=== PATIENT | male | born 1975 | race Caucasian/White ===

== ENCOUNTER 2018-12-21 08:00 | Emergency (ER) | payer MEDICAID ==
[2018-12-21] MEDS ORDERED: Albuterol/Ipratropium 3.0-0.5 MG/3 ML Neb Soln NEB ONE (08:04)
[2018-12-21] MEDS ORDERED: Albuterol/Ipratropium 3.0-0.5 MG/3 ML Neb Soln ONE (08:06)
[2018-12-21] MEDS ORDERED: methylPREDNISolone Sodium Succinate 125 MG/2 ML SDV IVPUSH ONE (08:07)
--- NOTE | 2018-12-21 08:08 | EDM.PDOC ---
ED HPI GENERAL MEDICAL PROBLEM - General Stated Complaint: CANT BREATHE Time Seen by Provider: 12/21/18 08:00 Source of Information: Reports: Patient, RN History Limitations: Reports: No Limitations - History of Present Illness INITIAL COMMENTS - FREE TEXT/NARRATIVE: C/O SOB wheezing starting this am on arising. No recent problems, Has inhaler at home but uses infrequently. Traveling for job and stayed in motel last margy and noted stale musty smell to room and believes that is what triggered issue. Hx smoking induced asthma. No fever or chills dry non productive cough. - Related Data Allergies Allergy/AdvReac Type Severity Reaction Status Date / Time No Known Allergies Allergy Verified 12/21/18 08:15 Home Meds: Home Meds . [No Known Home Meds] 12/21/18 [History] ED ROS GENERAL - Review of Systems Review Of Systems: ROS reveals no pertinent complaints other than HPI. ED EXAM, GENERAL - Physical Exam Exam: See Below Exam Limited By: No Limitations General Appearance: Alert, Moderate Distress Eye Exam: Bilateral Eye: EOMI Ears: Normal External Exam, Normal TMs Nose: Normal Inspection Throat/Mouth: Normal Inspection Head: Atraumatic, Normocephalic Neck: Normal Inspection Respiratory/Chest: Respiratory Distress, Decreased Breath Sounds, Wheezing Cardiovascular: Normal Peripheral Pulses, Regular Rate, Rhythm GI/Abdominal: Normal Bowel Sounds Extremities: Normal Inspection Neurological: Alert, Oriented, Normal Cognition Psychiatric: Normal Affect, Normal Mood Skin Exam: Warm, Dry, Intact, Tattoo(s) Course - Vital Signs Last Recorded V/S: Last Vital Signs Temp 97.1 F 12/21/18 08:00 Pulse 80 12/21/18 08:20 Resp 30 H 12/21/18 08:00 BP 142/69 H 12/21/18 08:00 Pulse Ox 97 12/21/18 08:04 - Orders/Labs/Meds Orders: Active Orders 24 hr Category Date Time Status RT Aerosol Therapy [RC] ASDIRECTED Care 12/21/18 08:04 Active RT Aerosol Therapy [RC] ASDIRECTED Care 12/21/18 08:13 Active CULTURE BLOOD [BC] Stat Lab 12/21/18 08:10 Received CULTURE BLOOD [BC] Stat Lab 12/21/18 08:16 Received Blood Culture x2 Reflex Set [OM.PC] Stat Oth 12/21/18 08:05 Ordered Labs: Laboratory Tests 12/21/18 12/21/18 12/21/18 Range/Units 08:10 08:10 08:10 WBC 7.2 (5.0-10.0) 10^3/uL RBC 5.66 (4.6-6.2) 10^6/uL Hgb 16.2 (14.0-18.0) g/dL Hct 48.7 (40.0-54.0) % MCV 86.0 (80-100) fL MCH 28.6 (27.0-34.0) pg MCHC 33.3 (33.0-35.0) g/dL Plt Count 296 (150-450) 10^3/uL Neut % (Auto) 49.2 (42.2-75.2) % Lymph % (Auto) 32.2 (20.5-50.1) % [place] % (Auto) 9.7 H (2-8) % Eos % (Auto) 8.1 H (1.0-3.0) % Baso % (Auto) 0.8 (0.0-1.0) % Sodium 140 (135-145) mmol/L Potassium 4.1 (3.6-5.0) mmol/L Chloride 105 (101-111) mmol/L Carbon Dioxide 27.0 (21.0-31.0) mmol/L Anion Gap 12.1 BUN 10 (7-18) mg/dL Creatinine 0.8 (0.6-1.3) mg/dL Est Cr Clr Drug Dosing 117.56 mL/min Estimated GFR (MDRD) > 60 BUN/Creatinine Ratio 12.50 Glucose 126 H (74-105) mg/dL Lactic Acid 1.0 (0.5-2.2) mmol/L Calcium 9.1 (8.4-10.2) mg/dl Total Bilirubin 0.8 (0.2-1.0) mg/dL AST 34 (10-42) IU/L ALT 34 (10-60) IU/L Alkaline Phosphatase 62 (42-121) IU/L Total Protein 7.9 (6.7-8.2) g/dl Albumin 4.9 (3.2-5.5) g/dl Globulin 3.0 Albumin/Globulin Ratio 1.63 Meds: Medications Discontinued Medications Generic Name Dose Route Start Last Admin Trade Name Freq PRN Reason Stop Dose Admin Albuterol 2.5 mg 12/21/18 08:13 12/21/18 08:16 Proventil Neb Soln NEB 12/21/18 08:14 2.5 mg ONETIME ONE Administration Albuterol/Ipratropium 3 ml 12/21/18 08:04 12/21/18 08:15 Duoneb 3.0-0.5 Mg/3 Ml NEB 12/21/18 08:05 3 ml ONETIME ONE Administration Albuterol/Ipratropium Confirm 12/21/18 08:06 12/21/18 08:16 Duoneb 3.0-0.5 Mg/3 Ml Administered 12/21/18 08:07 Not Given Dose 3 ml .ROUTE .STK-MED ONE Methylprednisolone Sodium Succinate 125 mg 12/21/18 08:07 12/21/18 08:15 Solu-Medrol IVPUSH 12/21/18 08:08 125 mg ONETIME ONE Administration - Re-Assessments/Exams Free Text/Narrative Re-Assessment/Exam: 12/21/18 22:31 Improved following nebs and solumedrol. Improved exchange and decreased wheeze. Able to speak full sentences. Departure - Departure Time of Disposition: 09:25 Disposition: Home, Self-Care 01 Condition: Good Clinical Impression: Acute asthma - Discharge Information *PRESCRIPTION DRUG MONITORING PROGRAM REVIEWED*: Not Applicable *COPY OF PRESCRIPTION DRUG MONITORING REPORT IN PATIENT JUDAH: No Instructions: Asthma, Adult Forms: ED Department Discharge Additional Instructions: Avoid chemical irritants and smoke albuterol inhaler 2 puffs every 4 hours as needed for wheezing cough prednisone taper start this afternoon then daily as written follow up if symptoms worsen - My Orders Last 24 Hours: My Active Orders 12/21/18 08:04 RT Aerosol Therapy [RC] ASDIRECTED 12/21/18 08:05 Blood Culture x2 Reflex Set [OM.PC] Stat 12/21/18 08:10 CULTURE BLOOD [BC] Stat 12/21/18 08:13 RT Aerosol Therapy [RC] ASDIRECTED 12/21/18 08:16 CULTURE BLOOD [BC] Stat - Assessment/Plan Last 24 Hours: My Active Orders 12/21/18 08:04 RT Aerosol Therapy [RC] ASDIRECTED 12/21/18 08:05 Blood Culture x2 Reflex Set [OM.PC] Stat 12/21/18 08:10 CULTURE BLOOD [BC] Stat 12/21/18 08:13 RT Aerosol Therapy [RC] ASDIRECTED 12/21/18 08:16 CULTURE BLOOD [BC] Stat
[2018-12-21] MEDS ORDERED: Albuterol 0.083% 2.5 MG/3 ML Neb Soln NEB ONE (08:13)
[2018-12-21 08:39] LABS: ANION GAP 12.1; CHLORIDE,CL 105 mmol/L (101-111); SODIUM,NA 140 mmol/L (135-145)
--- NOTE | 2018-12-21 08:56 | CR ---
EXAMINATION: Chest 1V Frontal SEX: Male AGE: 43 years CLINICAL HISTORY: 43-year-old male complaining of shortness of breath (SOB). INTERPRETATION: 1. Normal cardiac silhouette and bony thorax (AP projection). Left-sided aortic arch. 2. No lung mass or hilar lymphadenopathy. 3. No focal lobar pneumonia, atelectasis or collapse. 4. No cephalization of vascular flow, signs of alveolar edema, interstitial edema or dependent pleural effusion. 5. No pneumothorax or free subdiaphragmatic air. CONCLUSION: Negative exam.
== END 2018-12-21 09:25 | disposition home or self-care (01) ==
LOC: DL.ED 08:00
DX: J45.901 Unspecified asthma with (acute) exacerbation (principal); F17.200 Nicotine dependence, unspecified, uncomplicated
CPT/HCPCS: 36415; 71045; 80053; 83605; 85025; 87040; 94640; 96374; 99285; J2930; J7613-GY; J7620-GY